=== PATIENT | female | born 1960 | race Caucasian/White ===

== ENCOUNTER 2022-09-19 17:01 | Emergency (ER) | payer OTHER ==
[2022-09-19] MEDS ORDERED: Ketorolac 30 MG/ML SDV IVPUSH ONE (17:29)
[2022-09-19] MEDS ORDERED: Dexamethasone 10 MG/ML SDV IM ONE (17:30)
== END 2022-09-19 18:44 | disposition home or self-care (01) ==
LOC: JD.ED 17:01
DX: M25.561 Pain in right knee (principal)
CPT/HCPCS: 73564; 96372; 99283; J1100; J1885